=== PATIENT | male | born 1960 | race Caucasian/White ===

== ENCOUNTER 2023-04-13 00:42 | Emergency (ER) | payer BC, SELFPAY ==
[2023-04-13 00:47] VITALS: BP 143/74; PULSE 88; RESP 18; TEMP 36.3; O2SAT 99; BMI 27.6
--- NOTE | 2023-04-13 00:59 | ED_ITS ---
HPI - General Adult General Chief complaint: Urogenital-Male Time Seen by Provider: 04/13/23 00:43 Source: patient and family Mode of arrival: Wheelchair Limitations: no limitations History of Present Illness HPI narrative: Patient had left nephrostomy placed through [facility] in [place], with Dr Dimitrios Eastman, after he was diagnosed with a left kidney stone that would not pass. He had it placed last month. All care has been through [facility]. He urinates/passes urine through his urethra without difficulty. Tonight the patient woke and noted blood in nephrostomy bag. he does not know if he pulled on it or caught it on something while sleeping. He has no other complaints - no fever or chills, no flank pain or abdominal pain. He was still able to urinate normally tonight. On questioning the told me that the patient has an appointment in [address] Eastman at the Urology office in [place] to get re-evaluated to see if he still has a kidney stone and may possibly get the nephrostomy tube out . The reports that the patient's kidneys are working as well as they should so they took him off Eliquis, which he had been taking for DVT in the leg . Related Data Home Medications Medication Instructions Recorded Confirmed metoprolol succinate 25 mg 25 mg PO DAILY 04/13/23 04/13/23 tablet,extended release 24 hr potassium chloride 20 mEq 20 meq PO DAILY 04/13/23 04/13/23 tablet,extended release(part/cryst) (Klor-Con M) sodium bicarbonate 650 mg tablet 650 mg PO DAILY 04/13/23 04/13/23 Allergies Allergy/AdvReac Type Severity Reaction Status Date / Time No Known Drug Allergies Allergy Verified 04/13/23 00:58 [facility] Social History Smoking status: Never smoker Exam Narrative Exam Narrative: Nurses notes and vital signs reviewed and patient is not hypoxic. afebrile General: Well-appearing and in no apparent distress. Skin: Warm, dry, no pallor noted. No rash. Eye: Pupils are equal, round and EOMI. No scleral icterus. Ears, Nose, Mouth, and Throat: Oral mucosa is moist Cardiovascular: Regular Rate and Rhythm without murmur, gallop or rub. Respiratory: No accessory muscle use or respiratory distress. Lungs are clear to auscultation, no wheezing, rales or rhonchi Back: No midline thoracic or lumbar vertebral tenderness. No CVA tenderness. Nephrostomy site is without erythema, drainage/discharge or tenderness. The tube is sutured in place. The tube contains blood. The blood has congealed in the bag and is poorly draining now. Musculoskeletal: normal ROM, no lower extremity edema/swelling GI: Abdomen is soft, non-distended. Normal bowel sounds. No masses appreciated. No tenderness to palpation. No rebound, guarding, or rigidity noted. Neurological: A&O x4. No cranial nerve dysfunction observed. No truncal ataxia. Moves all extremities. Sensation intact. Psychiatric: Cooperative and interactive. Normal mood and affect. Constitutional Vital Signs, click to edit/add: Last Vital Signs Temp 97.3 F L 04/13/23 00:47 Pulse 82 04/13/23 04:27 Resp 16 04/13/23 04:27 BP 142/72 H 04/13/23 04:27 Pulse Ox 98 04/13/23 04:27 O2 Del Method Room Air 04/13/23 00:47 Course Vital Signs Vital signs: Vital Signs Temperature 97.3 F L 04/13/23 00:47 Pulse Rate 88 04/13/23 00:47 Respiratory Rate 18 04/13/23 00:47 Blood Pressure 143/74 H 04/13/23 00:47 Pulse Oximetry 99 04/13/23 00:47 Oxygen Delivery Method Room Air 04/13/23 00:47 Temperature 97.3 F L 04/13/23 00:47 Pulse Rate 82 04/13/23 04:27 Respiratory Rate 16 04/13/23 04:27 Blood Pressure 142/72 H 04/13/23 04:27 Pulse Oximetry 98 04/13/23 04:27 Oxygen Delivery Method Room Air 04/13/23 00:47 Medical Decision Making MDM Narrative Medical decision making narrative: blood drawn and sent for testing. Urine also ordered be obtained and sent for testing. CT scan the abdomen pelvis was obtained without contrast due to the patient's reported history of acute kidney injury. I do not have any prior records on this patient. He lives in [facility] and all of his care has been through the [facility]. Nurse was able to change out the nephrostomy bag, but nothing is draining because the nephrostomy tube is occluded with coagulated blood. UA of urine obtained from urethral clean catch had large blood, small Leuk Est and 2-5WBC. Urine culture pending. WBC normal and no left shift noted. BUN 48, Cr 4.75. Patient given Cipro in the ED. Call placed to [facility] to get in touch with Dr Eastman - Urologist. I spoke with the Urologist covering for Dr Eastman - Dr Lennon - and he wanted the patient transferred to [place] for admission to medicine service and then urology, as a employee relations consultant on the case, will see the patient later today. I eventually spoke with the hospitalist - Dr Oliva - at [facility], who accepted the patient's admission and transfer after we discussed the case. We are awaiting bed assignment and once that is obtained, the patient's will transport him to [facility]. He is stable hemodynamically for private transport and has no drips or need for cardiac monitoring. 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 Lab Data Lab results reviewed: Yes I reviewed the patient's lab results Labs: Lab Results 04/13/23 Range/Units 01:33 WBC 9.0 (4.0-11.0) 10^3/uL RBC 2.35 L (4.70-6.10) 10^6/uL Hgb 7.4 L (14.0-18.0) g/dL Hct 22.7 L* (42.0-54.0) % MCV 96.6 H (80.0-94.0) fL MCH 31.5 (25.9-34.0) pg MCHC 32.6 (29.9-35.2) g/dL RDW 15.9 H (11.0-15.0) % Plt Count 134 L (150-450) 10^3/uL MPV 9.8 (9.5-13.5) fL Neut % (Auto) 60.0 (43.0-75.0) % Lymph % (Auto) 10.4 L (20.5-60.0) % [place] % (Auto) 20.3 H (1.7-12.0) % Eos % (Auto) 3.0 (0.9-7.0) % Baso % (Auto) 0.3 (0.2-2.0) % Neut # (Auto) 5.4 (1.4-6.5) 10^3/uL Lymph # (Auto) 0.9 L (1.2-3.8) 10^3/uL [place] # (Auto) 1.8 H (0.3-0.8) 10^3/uL Eos # (Auto) 0.3 (0.0-0.7) 10^3/uL Baso # (Auto) 0.0 (0.0-0.1) 10^3/uL Abs Immat Gran (auto) 0.54 H (0.00-0.03) 10^3/uL Imm/Tot Granulo (auto) 6.0 H (0.0-0.5) % Sodium 132 L (136-145) mmol/L Potassium 4.2 (3.5-5.1) mmol/L Chloride 102 (98-107) mmol/L Carbon Dioxide 20.0 L (21.0-32.0) mmol/L Anion Gap 14.2 BUN 48.0 H (7.0-18.0) mg/dL Creatinine 4.75 H (0.70-1.30) mg/dL Est GFR ( Amer) 15 L (>=60) Est GFR (Non-Af Amer) 12 L (>=60) BUN/Creatinine Ratio 10.1 Glucose 92 (74-106) mg/dL Calcium 7.7 L (8.5-10.1) mg/dL Total Bilirubin 0.4 (0.2-1.0) mg/dL AST 20 (15-37) U/L ALT 16 (16-63) U/L Alkaline Phosphatase 99 (46-116) U/L Total Protein 9.9 H (6.4-8.2) g/dL Albumin 2.2 L (3.4-5.0) g/dL Globulin 7.7 g/dL Albumin/Globulin Ratio 0.3 Urine Color Lt. yellow (YELLOW) Urine Clarity Clear (CLEAR) Urine pH 7.0 (5.0-9.0) Ur Specific [place] 1.010 (1.005-1.025) Urine Protein 30 A (NEG/TRACE) mg/dL Urine Glucose (UA) Negative (NEGATIVE) mg/dL Urine Ketones Negative (NEGATIVE) mg/dL Urine Occult Blood Large A (NEGATIVE) Urine Nitrite Negative (NEGATIVE) Urine Bilirubin Negative (NEGATIVE) Urine Urobilinogen 0.2 (0.2-1.0) EU/dL Ur Leukocyte Esterase Small A (NEGATIVE) Urine RBC 5-10 A (0-2) #/HPF Urine WBC 2-5 A (NONE SEEN) #/HPF Ur Squamous Epith Cells Few A (NONE/RARE) #/LPF Urine Crystals None seen (None Seen) #/HPF Urine Bacteria None seen (NONE SEEN) #/HPF Urine Casts None seen (NONE SEEN) #/LPF Urine Mucus None seen (NONE SEEN) Ur Culture Indicated? Yes Imaging Data CT scan - abdomen: Radiologist's impression: Patient Name: MONTEZ COURTNEY MRN: [id number] date: 1960 Sex: M Assigned Patient Location: ED.MAIN Current Patient Location: ER Accession/Order Number: [id number] Exam Date: 04/13/2023 01:10 Report Date: 04/13/2023 02:05 At the request of: SAIMA WADDELL Procedure: CT abdomen pelvis wo con EXAM: CT abdomen pelvis wo con HISTORY: bleeding from nephrostomy COMPARISON: No comparison abdominal imaging available at the time of dictation TECHNIQUE: Multiple axial views CT abdomen pelvis without IV contrast. Coronal sagittal reformats. FINDINGS: Visualized lung bases demonstrate mild bilateral lower lung linear atelectasis. Visualized cardiac apex demonstrates borderline prominent heart size with partially visualized left and right coronary artery calcifications. Liver, gallbladder, pancreas, spleen, adrenal glands, urinary bladder, and appendix are unremarkable. Left percutaneous nephrostomy tube distal coil tip is at the left inferior renal calyx/medulla interface. No large subcapsular hematoma or perinephric fluid collection. A 3 mm nonobstructing left mid renal stone. A 2 mm nonobstructing right inferior renal stone. Prostate measures 4.2 cm transverse diameter. Scattered colonic diverticula. No pericolonic inflammatory stranding. Moderate amount of stool within the cecum and ascending colon. Small hiatal hernia. No evidence for small bowel obstruction, large ascites, or free air. IVC filter is seen at the L1-L2 level. Multiple scattered lucent lytic lesions throughout the visualized pelvic and lumbar bony structures consistent with the known multiple myeloma. L1 and L2 vertebral body superior endplate compression fracture height loss of 25% at L1 and 50% anteriorly at L2. Prior laminectomy. IMPRESSION: Left percutaneous nephrostomy tube distal coil tip is at the left inferior renal calyx/medulla interface. No large subcapsular hematoma or perinephric fluid collection. A 3 mm nonobstructing left mid renal stone. A 2 mm nonobstructing right inferior renal stone. Scattered colonic diverticula. Multiple scattered lucent lytic lesions throughout the visualized pelvic and lumbar bony structures consistent with the known multiple myeloma. L1 and L2 vertebral body superior endplate compression fracture height loss of 25% at L1 and 50% anteriorly at L2. Finding is remote appearing but age-indeterminate by CT. Correlate clinically for any acute lumbar back pain. Electronically authenticated by: HOWARD SMITH Date: 04/13/2023 02:05 Multiple scattered lucent lytic lesions throughout the visualized pelvic and lumbar bony structures consistent with the known multiple myeloma. L1 and L2 vertebral body superior endplate compression fracture height loss of 25% at L1 and 50% anteriorly at L2. Prior laminectomy. IMPRESSION: Left percutaneous nephrostomy tube distal coil tip is at the left inferior renal calyx/medulla interface. No large subcapsular hematoma or perinephric fluid collection. A 3 mm nonobstructing left mid renal stone. A 2 mm nonobstructing right inferior renal stone. Scattered colonic diverticula. Multiple scattered lucent lytic lesions throughout the visualized pelvic and lumbar bony structures consistent with the known multiple myeloma. L1 and L2 vertebral body superior endplate compression fracture height loss of 25% at L1 and 50% anteriorly at L2. Finding is remote appearing but age-indeterminate by CT. Correlate clinically for any acute lumbar back pain. Electronically authenticated by: HOWARD SMITH Date: 04/13/2023 02:05 Discharge Plan Discharge Chief Complaint: Urogenital-Male Clinical Impression: Nephrostomy tube bleed, Urinary tract infection Patient Disposition: [facility] Time of Disposition Decision: 02:22 Discharge location: [facility]
[2023-04-13 01:49] LABS: Basophils Percent Auto 0.3 % (0.2-2.0); Eosinophils Absolute Auto 0.3 10^3/uL (0.0-0.7); Hemoglobin 7.4 g/dL (14.0-18.0); Immature Granulocytes Abs Auto 0.54 10^3/uL (0.00-0.03); Lymphocytes Absolute Auto 0.9 10^3/uL (1.2-3.8); Lymphocytes Percent Auto 10.4 % (20.5-60.0); Mean Corpuscular HGB Conc 32.6 g/dL (29.9-35.2); Mean Corpuscular Hemoglobin 31.5 pg (25.9-34.0); Mean Corpuscular Volume 96.6 fL (80.0-94.0); Mean Platelet Volume 9.8 fL (9.5-13.5); Monocytes Absolute Auto 1.8 10^3/uL (0.3-0.8); Monocytes Percent Auto 20.3 % (1.7-12.0); Neutrophils Absolute Auto 5.4 10^3/uL (1.4-6.5); Platelet Count 134 10^3/uL (150-450); Red Blood Count 2.35 10^6/uL (4.70-6.10); Red Cell Distribution Width 15.9 % (11.0-15.0)
[2023-04-13 01:50] LABS: Bilirubin Urine NEGATIVE (NEGATIVE); Blood Urine LARGE (NEGATIVE); Clarity Urine CLEAR (CLEAR); Color Urine LT. YELLOW (YELLOW); Glucose Urine UA NEGATIVE (NEGATIVE); Hematocrit 22.7 % (42.0-54.0); Ketones Urine NEGATIVE (NEGATIVE); Leukocyte Esterase Urine SMALL (NEGATIVE); Nitrite Urine NEGATIVE (NEGATIVE); Protein Urine 30 mg/dL (NEG/TRACE); Urine Microscopic Indicated YES; Urobilinogen Urine 0.2 EU/dL (0.2-1.0)
--- NOTE | 2023-04-13 01:55 | PC.NURSE ---
critical hematocrit given to physician
[2023-04-13 01:59] LABS: Bacteria Urine NONE SEEN #/HPF (NONE SEEN); Cast Seen? NONE SEEN #/LPF (NONE SEEN); Crystals Seen? None Seen #/HPF (None Seen); Mucus Urine NONE SEEN (NONE SEEN); Squamous Epithelial Cell Urine FEW #/LPF (NONE/RARE); Urine Culture Indicated YES
[2023-04-13 02:04] LABS: Alanine Aminotransferase 16 U/L (16-63); Albumin Globulin Ratio 0.3; Albumin Level 2.2 g/dL (3.4-5.0); Alkaline Phosphatase 99 U/L (46-116); Anion Gap 14.2; Aspartate Amino Transferase 20 U/L (15-37); BUN Creatinine Ratio 10.1; Bilirubin Total 0.4 mg/dL (0.2-1.0); Calcium 7.7 mg/dL (8.5-10.1); Chloride 102 mmol/L (98-107); Estimated GFR (African America 15 (>=60); Estimated GFR (Non-African Ame 12 (>=60); Globulin 7.7 g/dL; Glucose 92 mg/dL (74-106); Potassium 4.2 mmol/L (3.5-5.1); Sodium 132 mmol/L (136-145); Total Protein 9.9 g/dL (6.4-8.2)
[2023-04-13 02:22] VITALS: BP 148/85; PULSE 82; RESP 16; O2SAT 98
[2023-04-13] MEDS: CIPROFLOXACIN HCL 500 MG TABLET PO (02:36)
[2023-04-13 04:27] VITALS: BP 142/72; PULSE 82; RESP 16; O2SAT 98
== END 2023-04-13 05:48 | disposition short-term general hospital (02) ==
PROVIDERS: Emergency Provider Emergency Medicine
DX: N99.520 Hemorrhage of incontinent external stoma of urinary tract (principal); N39.0 Urinary tract infection, site not specified; Z87.442 Personal history of urinary calculi; Z86.718 Personal history of other venous thrombosis and embolism; Z79.899 Other long term (current) drug therapy
CPT/HCPCS: 36415; 74176; 80053; 81001; 85025; 87086; 99285